=== PATIENT | male | born 1955 | race Caucasian/White ===

== ENCOUNTER 2017-01-27 21:26 | Emergency (ER) | payer BC ==
[2017-01-27] MEDS ORDERED: Sodium Chloride 0.9% 1000 ML 1,000 ML IV STA ×2 (21:52→22:03)
[2017-01-27] MEDS ORDERED: Sodium Chloride 0.9% 1000 ML 1,000 ML ONE (21:57)
[2017-01-27 21:58] LABS: ADD URINE CULTURE? NO (NO); Bilirubin NEGATIVE (NEGATIVE); Blood NEGATIVE Ery/ul (0-5); COMPLETE URINE MICROSCOPIC? NO; Collection Type CLEAN CATCH; Glucose NEGATIVE (NEGATIVE); Leukocyte Esterase NEGATIVE (NEGATIVE)
[2017-01-27 22:00] LABS: Mean Cell Volume 92.3 fl (78-100); Mean Corpuscular Hemoglobin 31.5 pg (26-32); Mean Platelet Volume 9.3 fl (6-9.5); Platelet Count 244 K/mm3 (150-450); Red Blood Count 4.67 M/mm3 (4.1-5.6); Red Cell Distribution Width 13.3 % (11.5-14.0); White Blood Count 6.4 K/mm3 (4.0-10.5)
[2017-01-27] MEDS ORDERED: MORPHINE SULFATE 4 MG INJ IV ONE (22:03)
[2017-01-27] MEDS ORDERED: BENADRYL 50 MG/ML IV ONE (22:03)
[2017-01-27] MEDS ORDERED: Pepcid 20 MG VIAL IV ONE ×2 (22:03→22:13)
[2017-01-27] MEDS ORDERED: Zofran 4 MG/2 ML VIAL IV ONE (22:03)
[2017-01-27] MEDS ORDERED: PROTONIX 40 MG IV IV ONE ×2 (22:03→22:13)
--- NOTE | 2017-01-27 22:03 | ERPHSYRPT ---
- History of Present Illness Time Seen by Provider: 01/27/17 21:58 Historian: patient Exam Limitations: no limitations Patient Subjective Stated Complaint: pt is co right side abd pain after taking a potassium pill -he ate azeri food 1330 pos nausea no vomiting no fever no chills pos bm today Triage Nursing Assessment: pt is awake and alert and anble to answer question Physician History: abd pain RUQ today no vomiting; prior removal of GB but with pancreatitis; none for 10 years; hx renal stones with similar symptoms but some time ago; tender at RUQ and flank today on exam; Timing/Duration: today Activities at Onset: none Quality: cramping, dullness, pressure Abdominal Pain Onset Location: RUQ, flank Pain Radiation: RUQ, flank Severity of Pain-Max: moderate Severity of Pain-Current: moderate Modifying Factors: Improves With: nothing Associated Symptoms: back Previous symptoms: same symptoms as today Allergies/Adverse Reactions: Penicillins Allergy (Severe, Verified 01/18/15 11:32) Swelling simvastatin [From Zocor] Allergy (Verified 01/27/17 21:56) Hx Tetanus, Diphtheria Vaccination/Date Given: No Hx Influenza Vaccination/Date Given: Yes (2013) Hx Pneumococcal Vaccination/Date Given: Yes - Review of Systems Constitutional: No Fever, No Chills Eyes: No Symptoms Ears, Nose, & Throat: No Symptoms Respiratory: No Cough, No Dyspnea Cardiac: No Chest Pain, No Edema, No Syncope Abdominal/Gastrointestinal: Abdominal Pain, No Nausea, No Vomiting, No Diarrhea Genitourinary Symptoms: Flank Pain, No Dysuria Musculoskeletal: No Back Pain, No Neck Pain Skin: No Rash Neurological: No Dizziness, No Focal Weakness, No Sensory Changes Psychological: No Symptoms Endocrine: No Symptoms All Other Systems: Reviewed and Negative - Past Medical History Pertinent Past Medical History: Yes Neurological History: No Pertinent History ENT History: No Pertinent History Cardiac History: High Cholesterol Respiratory History: No Pertinent History Endocrine Medical History: No Pertinent History Musculoskeletal History: No Pertinent History GI Medical History: GERD, Pancreatitis, Ulcer History: No Pertinent History Psycho-Social History: No Pertinent History Male Reproductive Disorders: Prostate Cancer Other Medical History: KIDNEY STOnES, Buldging disc - Past Surgical History Past Surgical History: Yes Neuro Surgical History: No Pertinent History Cardiac: No Pertinent History Respiratory: No Pertinent History Gastrointestinal: Appendectomy, Cholecystectomy, Other Genitourinary: Other Musculoskeletal: No Pertinent History Male Surgical History: Prostate Surgery Other Surgical History: Reconstruction of bladder with prostate was removed due to cancer in ruptured disc repair between L4 and L5, 10 fatty tumors removed gland removed from rectal area - Social History Smoking Status: Never smoker Exposure to second hand smoke: No Drug Use: none Patient Lives Alone: No - Nursing Vital Signs Nursing Vital Signs: Initial Vital Signs Temperature 98 F 01/27/17 21:50 Pulse Rate 80 01/27/17 21:50 Respiratory Rate 16 01/27/17 21:50 Blood Pressure 132/78 01/27/17 21:50 O2 Sat by Pulse Oximetry 98 01/27/17 21:50 Pain Scale Pain Intensity 3 - Physical Exam General Appearance: no apparent distress, alert Eye Exam: PERRL/EOMI, eyes nml inspection Ears, Nose, Throat Exam: normal ENT inspection, pharynx normal, moist mucous membranes Neck Exam: normal inspection, non-tender, supple, full range of motion Respiratory Exam: normal breath sounds, lungs clear, No respiratory distress Cardiovascular Exam: regular rate/rhythm, normal heart sounds Gastrointestinal/Abdomen Exam: soft, tenderness, guarding, No mass, No pulsatile mass Rectal Exam: deferred Back Exam: normal inspection, normal range of motion, No CVA tenderness, No vertebral tenderness Extremity Exam: normal inspection, normal range of motion, pelvis stable Neurologic Exam: alert, oriented x 3, cooperative, normal mood/affect, nml cerebellar function, sensation nml, No motor deficits Skin Exam: normal color, warm, dry SpO2 Interpretation: normal SpO2: 98 Oxygen Delivery: Room Air - Course Nursing assessment & vital signs reviewed: Yes EKG Interpreted by Me: Sinus Rhythm, Left [place] Deviation, NORMAL QRS, Non- specific ST Changes - CT Exams Abdomen/Pelvis CT Interpretation: Tele-radiologist Report, No appendicitis, Other (left renal calc) Ordered Tests: Active Orders 24 hr Category Date Time Status Clean Catch Urine Specimen STAT Care 01/27/17 21:52 Active EKG-ER Only STAT Care 01/27/17 22:03 Active IV Insertion STAT Care 01/27/17 22:03 Active ABDOMEN AND PELVIS W/0 CONTRAS [CT] Stat Exams 01/27/17 22:04 Taken AMYLASE Stat Lab 01/27/17 21:40 Completed CBC W DIFF Stat Lab 01/27/17 21:40 Completed CMP Stat Lab 01/27/17 21:40 Completed LIPASE Stat Lab 01/27/17 21:40 Completed Lactic Acid Stat Lab 01/27/17 22:37 Completed Manual Differential NC Stat Lab 01/27/17 21:40 Completed TROPONIN Q3H Lab 01/27/17 21:40 Completed TROPONIN Q3H Lab 01/28/17 01:00 Ordered TROPONIN Q3H Lab 01/28/17 04:00 Ordered TROPONIN Q3H Lab 01/28/17 07:00 Ordered TROPONIN Q3H Lab 01/28/17 10:00 Ordered UA W/RFX UR CULTURE Stat Lab 01/27/17 21:30 Completed Medication Summary Generic Name Dose Route Start Last Admin Trade Name Freq PRN Reason Stop Dose Admin Sodium Chloride 1,000 mls @ 100 mls/hr 01/27/17 21:52 01/27/17 21:58 Sodium Chloride 0.9% 1000 Ml IV 01/28/17 07:51 100 mls/hr .Q10H STA Administration Discontinued Medications Generic Name Dose Route Start Last Admin Trade Name Freq PRN Reason Stop Dose Admin Diphenhydramine HCl 25 mg 01/27/17 22:03 01/27/17 22:15 Benadryl 50 Mg/Ml IV 01/27/17 22:04 25 mg STAT ONE Administration Diphenhydramine HCl Confirm 01/27/17 22:13 Benadryl 50 Mg/Ml Administered 01/27/17 22:14 Dose 50 mg .ROUTE .STK-MED ONE Famotidine 20 mg 01/27/17 22:03 01/27/17 22:15 Pepcid 20 Mg Vial IV 01/27/17 22:04 20 mg STAT ONE Administration Famotidine Confirm 01/27/17 22:13 Pepcid 20 Mg Vial Administered 01/27/17 22:14 Dose 20 mg IV .STK-MED ONE Sodium Chloride Confirm 01/27/17 21:57 Sodium Chloride 0.9% 1000 Ml Administered 01/27/17 21:58 Dose 1,000 mls @ ud .ROUTE .STK-MED ONE Sodium Chloride 1,000 mls @ 999 mls/hr 01/27/17 22:03 01/27/17 22:16 Sodium Chloride 0.9% 1000 Ml IV 01/27/17 23:03 999 mls/hr .Q1H1M STA Administration Morphine Sulfate 4 mg 01/27/17 22:03 01/27/17 22:15 Morphine Sulfate 4 Mg Inj IV 01/27/17 22:04 4 mg STAT ONE Administration Morphine Sulfate Confirm 01/27/17 22:13 Morphine Sulfate 4 Mg Inj Administered 01/27/17 22:14 Dose 4 mg .ROUTE .STK-MED ONE Ondansetron HCl 4 mg 01/27/17 22:03 01/27/17 22:17 Zofran 4 Mg/2 Ml Vial IV 01/27/17 22:04 4 mg STAT ONE Administration Ondansetron HCl Confirm 01/27/17 22:16 Zofran 4 Mg/2 Ml Vial Administered 01/27/17 22:17 Dose 4 mg .ROUTE .STK-MED ONE Pantoprazole Sodium 40 mg 01/27/17 22:03 01/27/17 22:15 Protonix 40 Mg Iv IV 01/27/17 22:04 40 mg STAT ONE Administration Pantoprazole Sodium Confirm 01/27/17 22:13 Protonix 40 Mg Iv Administered 01/27/17 22:14 Dose 40 mg IV .STK-MED ONE Lab/Rad Data: Laboratory Result Diagrams 01/27/17 21:40 01/27/17 21:40 Laboratory Results 01/27/17 01/27/17 01/27/17 Range/Units 22:37 21:40 21:40 WBC 6.4 (4.0-10.5) K/mm3 RBC 4.67 (4.1-5.6) M/mm3 Hgb 14.7 (12.5-18.0) gm/dl Hct 43.1 (42-50) % MCV 92.3 (78-100) fl MCH 31.5 (26-32) pg MCHC 34.1 (32-36) g/dl RDW 13.3 (11.5-14.0) % Plt Count 244 (150-450) K/mm3 MPV 9.3 (6-9.5) fl Sodium (136-145) mEq/L Potassium (3.5-5.1) mEq/L Chloride (98-107) mEq/L Carbon Dioxide (21-32) mEq/L Anion Gap (5-15) MEQ/L BUN (9-20) mg/dL Creatinine (0.55-1.30) mg/dl Estimated GFR ML/MIN Glucose (70-110) MG/DL Lactic Acid 1.8 (0.4-2.0) Calcium (8.5-10.1) mg/dL Total Bilirubin (0.2-1.0) mg/dL AST (15-37) U/L ALT (12-78) U/L Alkaline Phosphatase (46-116) U/L Troponin I < 0.017 (0.000-0.056) ng/ml Serum Total Protein (6.4-8.2) gm/dL Albumin (3.4-5.0) g/dL Amylase (25-115) U/L Lipase (73-393) U/L Ur Collection Type Urine Color (YELLOW) Urine Appearance (CLEAR) Urine pH (5-6) Ur Specific [place] (1.005-1.025) Urine Protein (Negative) Urine Ketones (NEGATIVE) Urine Blood (0-5) Nehemias/ul Urine Nitrite (NEGATIVE) Urine Bilirubin (NEGATIVE) Urine Urobilinogen (0-1) mg/dL Ur Leukocyte Esterase (NEGATIVE) Urine Glucose (NEGATIVE) mg/dL Specimen Received 01/27/17 01/27/17 Range/Units 21:40 21:30 WBC (4.0-10.5) K/mm3 RBC (4.1-5.6) M/mm3 Hgb (12.5-18.0) gm/dl Hct (42-50) % MCV (78-100) fl MCH (26-32) pg MCHC (32-36) g/dl RDW (11.5-14.0) % Plt Count (150-450) K/mm3 MPV (6-9.5) fl Sodium 144 (136-145) mEq/L Potassium 3.6 (3.5-5.1) mEq/L Chloride 107 (98-107) mEq/L Carbon Dioxide 24.0 (21-32) mEq/L Anion Gap 16.1 H (5-15) MEQ/L BUN 13 (9-20) mg/dL Creatinine 1.17 (0.55-1.30) mg/dl Estimated GFR > 60 ML/MIN Glucose 110 (70-110) MG/DL Lactic Acid (0.4-2.0) Calcium 9.4 (8.5-10.1) mg/dL Total Bilirubin 0.30 (0.2-1.0) mg/dL AST 21 (15-37) U/L ALT 30 (12-78) U/L Alkaline Phosphatase 79 (46-116) U/L Troponin I (0.000-0.056) ng/ml Serum Total Protein 7.1 (6.4-8.2) gm/dL Albumin 3.9 (3.4-5.0) g/dL Amylase 59 (25-115) U/L Lipase 134 (73-393) U/L Ur Collection Type CLEAN CATCH Urine Color YELLOW (YELLOW) Urine Appearance CLEAR (CLEAR) Urine pH 8.5 (5-6) Ur Specific [place] 1.010 (1.005-1.025) Urine Protein NEGATIVE (Negative) Urine Ketones NEGATIVE (NEGATIVE) Urine Blood NEGATIVE (0-5) Nehemias/ul Urine Nitrite NEGATIVE (NEGATIVE) Urine Bilirubin NEGATIVE (NEGATIVE) Urine Urobilinogen NORMAL (0-1) mg/dL Ur Leukocyte Esterase NEGATIVE (NEGATIVE) Urine Glucose NEGATIVE (NEGATIVE) mg/dL Specimen Received 01/27/17:2130 - Progress Progress: improved, re-examined Progress Note: 01/27/17 23:50 pain resolved in ER , pt was advised of limitations of testing performed and that undetected pathology could still be evolving , and he prefers DC to home with f/u PCP rather than admission and further w/u at this time or obs; 01/27/17 23:54 denies any CP or SOBreath ever, and is without any abd pain at this time; Counseled pt/family regarding: lab results, diagnosis, need for follow-up, rad results - Departure Time of Disposition: 23:51 Departure Disposition: Home Clinical Impression: Renal calculus, left, Abdominal pain of unknown cause, Liver cyst Condition: Good Critical Care Time: No Referrals: ARMANDO FIGUEROA NP [Primary Care Provider] - Instructions: Abdominal Pain-Adult, Kidney Stones Additional Instructions: we have not determined a cause for your pain, but there are some liver cysts and a left kidney stone to followup with your s; return meantime if pain recurs or other concerns;
[2017-01-27] MEDS ORDERED: BENADRYL 50 MG/ML ONE (22:13)
[2017-01-27] MEDS ORDERED: MORPHINE SULFATE 4 MG INJ ONE (22:13)
[2017-01-27] MEDS ORDERED: Zofran 4 MG/2 ML VIAL ONE (22:16)
[2017-01-27 22:17] LABS: ALBUMIN 3.9 g/dL (3.4-5.0); ALKALINE PHOSPHATASE 79 U/L (46-116); ANION GAP 16.1 MEQ/L (5-15); BLOOD UREA NITROGEN 13 mg/dL (9-20); CHLORIDE 107 mEq/L (98-107); Glucose 110 MG/DL (70-110); LIPASE 134 U/L (73-393); Potassium 3.6 mEq/L (3.5-5.1); SGOT/AST 21 U/L (15-37); SGPT/ALT 30 U/L (12-78); SODIUM 144 mEq/L (136-145); Total Protein 7.1 gm/dL (6.4-8.2)
[2017-01-27 23:10] VITALS: O2SAT 98
[2017-01-28 01:25] LABS: ATYPICAL LYMPHS 1 %; Eosinophil 2 % (0.00-3.0); Platelet Estimate NORMAL (NORMAL); Total Cells Counted 100
[2017-01-28 05:29] VITALS: BP 130/80; PULSE 80
--- NOTE | 2017-01-28 07:45 | XRAY ---
Indication: Right upper quadrant and right flank pain. History of renal stone. Multiple contiguous axial images obtained through the abdomen and pelvis without contrast as ordered. Comparison: January 24, 2014. Lung bases demonstrates stable bibasilar calcified/noncalcified granulomas. No infiltrate or effusion. Heart is not enlarged. Stable punctate left renal cortical calcification. No renal calculus or evidence for obstructive uropathy in either system. Stable calcified splenic granulomas, hepatic cysts, cholecystectomy, and appendectomy. Noncontrasted stomach and bowel loops appear nonobstructed. No free fluid/air. Remaining liver, pancreas, spleen, adrenal glands, kidneys, ureters, bladder, and aorta appear unremarkable for noncontrast exam. Osseous structures intact. Impression: 1. No renal calculus or evidence for obstructive uropathy. Stable left renal punctate cortical calcification. 2. Again evidence for old granulomatous disease. 3. No acute intra-abdominal/pelvic abnormalities on this noncontrast exam. Comment: Preliminary interpretation was made by [facility]. No discrepancy. CTDI 18.83
== END 2017-01-28 00:18 | disposition home or self-care (01) ==
LOC: ED 21:26
DX: N20.0 Calculus of kidney (principal); R10.11 Right upper quadrant pain; K76.89 Other specified diseases of liver; Z90.49 Acquired absence of other specified parts of digestive tract
CPT/HCPCS: 36000; 36415; 74176; 80053; 81002; 82150; 83605; 83690; 84484; 85025; 93005; 96360; 96374; 96375; 99285; J1200; J2270; J2405

== ENCOUNTER 2018-07-22 18:16 | Emergency (ER) | payer BC ==
[2018-07-22 18:26] VITALS: O2SAT 98
[2018-07-22] MEDS ORDERED: Eye-Stream Solution OP ONE (18:29)
[2018-07-22] MEDS ORDERED: TETRACAINE 0.5% STERI-UNIT SOL OP STA (18:29)
[2018-07-22] MEDS ORDERED: TETRACAINE 0.5% STERI-UNIT SOL OP ONE (18:29)
[2018-07-22] MEDS ORDERED: Fluor-I-Strip/Ful-Flo OP ONE ×2 (18:29→18:30)
[2018-07-22] MEDS ORDERED: Eye-Stream Solution ONE (18:30)
[2018-07-22] MEDS ORDERED: Ciloxan OPHTH OP ONE (18:40)
[2018-07-22] MEDS ORDERED: Ciloxan OPHTH ONE (18:47)
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
[2018-07-22 19:15] VITALS: BP 120/76; PULSE 86
== END 2018-07-22 19:16 | disposition home or self-care (01) ==
LOC: ED 18:16
DX: T15.91XA Foreign body on external eye, part unspecified, right eye, initial encounter (principal); Z85.46 Personal history of malignant neoplasm of prostate; Z87.442 Personal history of urinary calculi; E78.00 Pure hypercholesterolemia, unspecified; K21.9 Gastro-esophageal reflux disease without esophagitis
CPT/HCPCS: 99283; A9270-GY